=== PATIENT | female | born 1955 | race Caucasian/White ===

== ENCOUNTER 2019-12-01 15:45 | Emergency (ER) | payer BC, MEDICARE | END 2019-12-01 16:10 | disposition home or self-care (01) | LOC: BURERS 15:45 | DX: S80.12XA Contusion of left lower leg, initial encounter (principal); I10 Essential (primary) hypertension; F17.210 Nicotine dependence, cigarettes, uncomplicated; E78.00 Pure hypercholesterolemia, unspecified; M81.0 Age-related osteoporosis without current pathological fracture; E03.9 Hypothyroidism, unspecified; W22.8XXA Striking against or struck by other objects, initial encounter | CPT/HCPCS: 99281 ==